=== PATIENT | male | born 1970 | race Caucasian/White ===

== ENCOUNTER → 2025-01-23 08:50 | Outpatient (BNVA) | payer MEDICAID, SELFPAY | PROVIDERS: Visit Provider Clinical Nurse Specialist Adult Health | DX: E11.9 Type 2 diabetes mellitus without complications (principal) | CPT/HCPCS: 80053; 80061; 81000; 82607; 83036; 85025 ==

== ENCOUNTER 2025-02-01 10:49 | Emergency (ER) | payer MEDICAID, SELFPAY ==
[2025-02-01 10:50] VITALS: BP 144/87; PULSE 81; RESP 19; TEMP 37; O2SAT 94; BMI 41.9
--- NOTE | 2025-02-01 10:53 | XR_ITS ---
WS: [id number] Exam: XR chest 1V portable [id number] Date/Time of Exam: 02/01/2025 11:04 AM Reason For Exam: chest pain No priors. Lungs are clear. Normal cardiomediastinal silhouette. No pleural effusion or pneumothorax. Bony structures are intact. XR/XR chest 1V portable [id number] IMPRESSION: 1. No acute cardiopulmonary finding.
--- NOTE | 2025-02-01 10:53 | ECG_ITS ---
[facility] Test Date: 2025-02-01 Pat Name: Brad Reynoso Department: Room: Gender: Male [employer] Supervisor: : 1970 Requested By: Ryan Velasquez Order Number: [id number] Kathy MD: Smiley Post M.D. Measurements Intervals [place] Rate: 80 P: -1 WA: 163 QRS: -20 QRSD: 108 T: 17 QT: 373 QTc: 430 Interpretive Statements SINUS RHYTHM POSSIBLE SEPTAL MYOCARDIAL INFARCTION , OF INDETERMINATE AGE [30 ms Q WAVE IN V1/V2] INTERPRETATION BASED ON A DEFAULT AGE OF 40 YEARS No previous ECG available for comparison Electronically Signed On 02-01-2025 23:40:02 [employer] OPERATOR HELPER by Smiley Post M.D. [email or web address]
[2025-02-01 11:09] VITALS: BP 143/81; PULSE 83; O2SAT 94
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
[2025-02-01 11:13] LABS: Hematocrit 51.1 % (37-53); Hemoglobin 17.30 g/dL (11.27-16.99); Mean Corpuscular HGB Conc 33.9 g/dL (30-55); Mean Corpuscular Hemoglobin 28.8 pg (27-33); Mean Corpuscular Volume 85.2 fl (82-101); Nucleated Red Blood Cells % 0 %; Platelet Count 269 10^3/cmm (157-399); Red Blood Count 6.00 10^6/uL (3.85-5.65); White Blood Count 12.88 10^3/uL (3.29-11.43)
[2025-02-01 11:34] LABS: Troponin(5th) Baseline 16 ng/L (0-15)
[2025-02-01 11:39] LABS: Alanine Aminotransferase 31 U/L (0-41); Albumin Level 4.2 g/dL (3.5-5.2); Alkaline Phosphatase 178 U/L (40-130); Anion Gap 16.5 (5-19); Aspartate Amino Transferase 23 U/L (0-40); Blood Urea Nitrogen 13 mg/dL (6-20); Calcium 9.9 mg/dL (8.5-10.5); Carbon Dioxide 24 mmol/L (22-29); Chloride 99 mmol/L (98-107); Globulin 2.5 g/dL (1.3-4.6); Glucose 239 mg/dL (65-115); Osmolality Calculated 288 mOsm/kg (285-295); Potassium 4.5 mmol/L (3.5-5.1); Sodium 135 mmol/L (136-145); Total Protein 6.7 g/dL (6.6-8.7)
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
[2025-02-01 11:51] VITALS: BP 170/80; PULSE 83; O2SAT 90
--- NOTE | 2025-02-01 12:53 | ECG_ITS ---
[facility]25[facility]01 Pat Name: Brad Reynoso Department: Room: Gender: Male Department Mgr: : 1970 Requested By: Ryan Velasquez Order Number: [id number] Kathy MD: Smiley Post M.D. Measurements Intervals Walker Rate: 78 P: 37 NH: 179 QRS: -19 QRSD: 109 T: 21 QT: 375 QTc: 429 Interpretive Statements SINUS RHYTHM Compared to ECG 02/01/2025 10:55:04 Myocardial infarct finding no longer present Electronically Signed On 02-01-2025 23:48:56 MEDICAL OFFICER PSYCHIATRY by Smiley Post M.D. [email or web address]
[2025-02-01 14:00] VITALS: BP 149/90; PULSE 79; O2SAT 95
--- NOTE | 2025-02-02 10:15 | DCPLANNER ---
messaged heart care for er f/u
== END 2025-02-01 14:01 | disposition home or self-care (01) ==
PROVIDERS: Emergency Provider Family Medicine; PCP Clinical Nurse Specialist Adult Health
DX: R07.9 Chest pain, unspecified (principal); Z79.4 Long term (current) use of insulin; F17.210 Nicotine dependence, cigarettes, uncomplicated; E78.5 Hyperlipidemia, unspecified; E11.42 Type 2 diabetes mellitus with diabetic polyneuropathy; Z85.828 Personal history of other malignant neoplasm of skin
CPT/HCPCS: 36415; 71045; 80053; 84484; 85025; 93005; 99285

== ENCOUNTER → 2025-02-13 09:33 | Outpatient (BNVA) | payer MEDICAID, SELFPAY | PROVIDERS: PCP Clinical Nurse Specialist Adult Health; Referring Provider Family Medicine; Visit Provider Internal Medicine Cardiovascular Disease | DX: R07.9 Chest pain, unspecified (principal); Z51.89 Encounter for other specified aftercare; I10 Essential (primary) hypertension; G47.33 Obstructive sleep apnea (adult) (pediatric); F17.210 Nicotine dependence, cigarettes, uncomplicated | CPT/HCPCS: 99204 ==